=== PATIENT | female | born 1990 | race Caucasian/White ===

== ENCOUNTER 2018-04-08 04:52 | Inpatient (IN) | payer BC, OTHER, SELFPAY ==
[2018-04-08] VITALS (21 sets, daily range): BP systolic 102–136; BP diastolic 45–88; PULSE 72–110; RESP 15–20; TEMP 36–37.1; O2SAT 97–100; BMI 32.4
[2018-04-08] MEDS: Lactated Ringers 1,000 ML 999 ML IV (05:39)
[2018-04-08 06:23] LABS: Hematocrit 36.5 % (37-47); Mean Corp Hgb Conc 32.9 g/gl (32-36); Mean Corpuscular Hgb 28.4 pg (27.0-32.0); Mean Corpuscular Volume 86.5 fL (81-99); Mean Platelet Vol. 10.6 fl (6.2-12.0); Platelet Count 234 K/mm3 (150-450); RBC Distribution Width CV 14.1 % (11.6-14.6); RBC Distribution Width SD 43.7 fl (35.1-43.9); Red Blood Count 4.22 M/mm3 (4.2-5.4); White Blood Count 11.6 K/mm3 (4.4-11.0)
[2018-04-08 06:25] LABS: Scan Indicated on CBC? Y/N NO
[2018-04-08] MEDS: Lactated Ringers 1,000 ML 150 ML IV (06:39)
[2018-04-08] MEDS: Sodium Citrate/Citric Acid 30 ML UDC PO (07:01)
[2018-04-08] MEDS: Oxytocin 30 units/NS 500 ml 30 UNITS/500 ML IV.SOLN 167 UNITS IV (07:50)
--- NOTE | 2018-04-08 08:26 | OP.PCM_ITS ---
Delivery Classification: Scheduled Final GAIL: 04/15/18 Final GAIL Source: US <20 weeks Gestational age: 39 Weeks and 0 Days Indications for : Repeat Elective Description of Procedure: The patient was taken to the operating room. She was prepped and draped in the dorsal supine position with a leftward tilt. A Pfannenstiel skin incision was made approximately 2 cm above the symphysis pubis and carried through to underlying layer fascia with the scalpel. The fascia was incised incised in the midline and extended laterally with the Foy scissors. The fascia was dissected off the rectus muscles with blunt and sharp dissection. The rectus muscles were in the midline and the peritoneum was entered bluntly. The peritoneal incision was stretched and the bladder blade was placed. The uterine incision was made in a low transverse fashion with the scalpel and extended superiorly and inferiorly with blunt dissection. The amniotic membranes were ruptured bluntly and clear amniotic fluid returned. The ' s head was brought to the incision in the flexed position and delivered without difficulty. The remainder of the infant was delivered with gentle traction and fundal pressure in the standard fashion. The mouth and nares were bulb suctioned. The cord was clamped and cut as the was stimulated. Cord clamping was delayed. The infant was handed off to the waiting nursing staff. The placenta was delivered with fundal massage and gentle traction in the standard fashion. The uterus was exteriorized and cleared of all clots and debris. The cervix was dilated with a ring forcep. The uterine incision was closed with #1 Vicryl in a running locked fashion. [id number] was needed near the left apex of the incision to obtain hemostasis. The uterus was placed back into the peritoneal cavity and hemostasis was assured. The rectus muscles were examined and any bleeding was Bovie cauterized. The parietal peritoneum and rectus muscles were closed en bloc with a #1 Vicryl suture. The rectus fascia was examined and the bleeding was Bovie cauterized and the rectus fascia was closed with 1 Vicryl suture in a running standard fashion. The subcutaneous tissue was examining and any bleeding was Bovie cauterized. The skin was closed in a subcuticular fashion. Performed the entire procedure with assistance. All sponge, lap, and needle counts were correct. The patient was taken to her room for recovery in a stable condition. Amniotic Membrane Rupture Type: Artificial Amniotic Fluid Description: Clear Placenta Disposition: [facility] Specimen(s) sent to pathology: none Drain: Mukherjee to straight drain Fluids Replaced: LR and pitocin Cord Entanglement: None Cord Vessel Description: 3 Vessels Esitmated Blood Loss (ml): 900cc Gender: Female Delayed cord clamping: Yes Pre-op Antibiotic Given: Ancef 2 grams IV x1 Complications: None - Admit VTE Documentation VTE Present on Admission: No VTE Mechan Device Prophylaxis: SCD's VTE Pharm Prophylaxis ordered?: No
--- NOTE | 2018-04-08 10:53 | NURSING ---
Bedside shift report given to Porsche Celis RN. She will assume care of patient at this time.
[2018-04-08] MEDS: Ketorolac 30 MG/ML Syringe IV ×2 (14:21→20:36)
[2018-04-08] MEDS: Lactated Ringers 1,000 ML 100 ML IV (15:09)
[2018-04-08] MEDS: 0.9% Saline Lock 10 ML Syringe IV (20:36)
[2018-04-08] MEDS: Senna/Docusate Sodium 1 Tablet PO (22:20)
[2018-04-09 00:20] VITALS: BP 127/59; PULSE 96; RESP 18; TEMP 36.7; O2SAT 100
[2018-04-09 03:28] VITALS: PULSE 108; RESP 18; O2SAT 98
[2018-04-09] MEDS: Ketorolac 30 MG/ML Syringe IV ×4 (03:34→20:00)
[2018-04-09 06:08] VITALS: BP 116/56; PULSE 96; RESP 18; TEMP 35.7; O2SAT 99
[2018-04-09 06:10] LABS: Hemoglobin 10.1 g/dl (12.0-15.0); Mean Corp Hgb Conc 32.6 g/gl (32-36); Mean Corpuscular Hgb 28.5 pg (27.0-32.0); Mean Corpuscular Volume 87.6 fL (81-99); Mean Platelet Vol. 9.8 fl (6.2-12.0); Platelet Count 219 K/mm3 (150-450); RBC Distribution Width SD 42.9 fl (35.1-43.9); Red Blood Count 3.54 M/mm3 (4.2-5.4); White Blood Count 13.9 K/mm3 (4.4-11.0)
[2018-04-09 06:17] LABS: Scan Indicated on CBC? Y/N NO
[2018-04-09 08:00] VITALS: BP 116/68; PULSE 94; RESP 18; TEMP 36.3
[2018-04-09] MEDS: Senna/Docusate Sodium 1 Tablet PO ×2 (08:57→22:01)
[2018-04-09] MEDS: 0.9% Saline Lock 10 ML Syringe IV ×2 (08:57→14:38)
--- NOTE | 2018-04-09 10:54 | PCM.PN.OB ---
Subjective: pain well controlled, average lochia, ambulating, heath. regular diet - Physical Exam General: Alert, Cooperative, No apparent distress Abdomen: Soft, Non Tender, Non-Distended Extremities: No edema Skin: Incision - bandage clean, dry adn intact Vital Signs Temp Pulse Resp BP Pulse Ox 96.3 F L 96 18 116/56 L 99 04/09/18 06:08 04/09/18 06:08 04/09/18 06:08 04/09/18 06:08 04/09/18 06:08 Oxygen Delivery Method Room Air Weight: 85.729 kg Body Mass Index (BMI) 32.4 Intake and Output for Last 24 Hours 04/07/18 04/08/18 04/09/18 23:59 23:59 23:59 Intake Total 3089 / 3089 Output Total 2900 / 2900 1150 / 1150 Balance 189 / 189 -1150 / -1150 Laboratory Tests Past 24 Hrs 04/09/18 05:50 WBC 13.9 H RBC 3.54 L Hgb 10.1 L Hct 31.0 L MCV 87.6 MCH 28.5 MCHC 32.6 RDW 14.0 RDW Differential 42.9 Plt Count 219 MPV 9.8 Medical Necessity - Tobacco Use Smoking Status: Never smoker
--- NOTE | 2018-04-09 11:08 | DCINST_ITS ---
Discharge Diet: No Restrictions Discharge Activity: Return to Normal Activity, May Not Drive - for 2 weeks, May not drive while taking narcotic pain medications., May Shower, May Take a Tub Bath - in 7 days. May resume sexual activity in: 4-6 weeks Lifting Restrictions: 20 pounds Additional Activity Instructions:: Nothing in the vagina for 4-6 weeks. You may return to work/school in 6 weeks. Call your doctor if your incision/area has: Continuous Slow Oozing, Sudden Increased Bleeding, Increased Pain/ Swelling, Increased Redness, Foul Smelling Discharge Call your doctor if you observe: Fever of 101 or Higher, Using more than one pad per hour - for 2 hours Suture Line Care: Avoid Pulling/Pushing, Avoid Pinching/Bending Cleanse incision/area with: Keep Dressing Clean & Dry Additional Instructions: If you experience any of the following, contact your healthcare provider. * Bleeding that soaks a pad every hour for 2 hours * Fever 100.4 or higher * Unrelieved incision or abdominal pain * Swelling, redness, discharge or bleeding from your incision or episiotomy site * Your incision begins to separate * Problems urinating (including inability to urinate or burning while urinating) . * Visual changes * Severe headache * Flu-like symptoms * Pain or redness in one of both of your breasts * Pain, warmth, tenderness or swelling in your legs, especially the calf area * Frequent nausea and vomiting * Symptoms of depression or anxiety If you experience any of the following, call 911 or go to the nearest Emergency Room. * Chest pain * Problems breathing * Seizure activity * Partial or complete paralysis of a body part, slurred speech, weakness or drooping of the face, or a sudden inability to walk or hold your balance Allergies/Adverse Reactions: Allergies No Known Allergies Allergy (Verified 06/04/16 19:25) Medications to take at Discharge Vits [Prenatabs FA ] 1 tab PO DAILY 06/04/16 Ibuprofen [Motrin] 800 mg PO TID PRN PRN #60 tab 04/09/18 Oxycodone HCl/Acetaminophen [Percocet 5/325] 1 - 2 tablet PO Q8 PRN 7 Days #28 tablet 04/09/18 The following prescriptions were given: Ibuprofen [Motrin] 800 mg PO TID PRN PRN #60 tab PRN Reason: Pain Oxycodone HCl/Acetaminophen [Percocet 5/325] 1 - 2 tablet PO Q8 PRN 7 Days #28 tablet PRN Reason: Pain Follow-Up: Call to make an appointment with your doctor for an incision check in 1-2 weeks. You will also need a 6 week post- follow up appointment. Please Follow Up With: Yuliana Solomon MD - Call to make an appointment for an incision check in 1-2 [phone] When: You will need a post check in 6 weeks.
[2018-04-09 13:52] VITALS: BP 120/67; PULSE 91; RESP 16; TEMP 36.7
[2018-04-09 20:00] VITALS: BP 139/82; PULSE 98; RESP 16; TEMP 36.7
[2018-04-10 02:05] VITALS: BP 133/76; PULSE 96; RESP 16; TEMP 36.6
[2018-04-10] MEDS: Ketorolac 30 MG/ML Syringe IV ×2 (02:05→08:21)
[2018-04-10] MEDS: 0.9% Saline Lock 10 ML Syringe IV ×2 (02:06→08:21)
[2018-04-10 03:47] LABS: Rapid Plasmin Reagin (RPR) NONREACTIVE (NONREACTIVE)
--- NOTE | 2018-04-10 07:42 | PCM.PN.OB ---
Subjective: pain well controlled, average lochia, +BM. is going well - Physical Exam General: Alert, Cooperative, No apparent distress Abdomen: Soft, Distended - mildly, softly, Tender - appropriately Extremities: Edema - trace Skin: Incision - bandage clean, dry and intact Vital Signs Temp Pulse Resp BP Pulse Ox 97.9 F 96 16 133/76 H 99 04/10/18 02:05 04/10/18 02:05 04/10/18 02:05 04/10/18 02:05 04/09/18 06:08 Oxygen Delivery Method Room Air Weight: 85.729 kg Body Mass Index (BMI) 32.4 Intake and Output for Last 24 Hours 04/08/18 04/09/18 04/10/18 23:59 23:59 23:59 Intake Total 3089 / 3089 Output Total 2900 / 2900 1550 / 1550 Balance 189 / 189 -1550 / -1550 Laboratory Tests Past 24 Hrs 04/08/18 05:28 RPR NONREACTIVE Medical Necessity - Tobacco Use Smoking Status: Never smoker Assessment/Plan POD#2 doing well ready for d/c and doing well
--- NOTE | 2018-04-10 07:44 | PCM.DC.SUM ---
Discharge Date and Diagnosis Date of Admission: 04/08/18 Date of Discharge: 04/10/18 Hospital Course and Treatment Operations: - - repeat LTCS Procedures: None Summary of Care Provided: The patient is a 27-year-old 2 para 1 female admitted on 04/08/2018 for repeat section. This was performed without difficulty. She had mild acute blood loss anemia appropriate for blood loss during the surgery. Her postoperative course was unremarkable. By postoperative day #2 she was ambulating, urinating, tolerating regular diet and oral pain medications. She was discharged home with routine instructions and prescriptions and she is to follow-up in our office in 1-2 or 6 weeks. IThe breast-feeding and doing well. [] Discharge Diet: No Restrictions Discharge Activity: Return to Normal Activity, May Not Drive - for 2 weeks, May not drive while taking narcotic pain medications., May Shower, May Take a Tub Bath - in 7 days. May resume sexual activity in: 4-6 weeks Additional Activity Instructions:: Nothing in the vagina for 4-6 weeks. You may return to work/school in 6 weeks. Call your doctor if your incision/area has: Continuous Slow Oozing, Sudden Increased Bleeding, Increased Pain/ Swelling, Increased Redness, Foul Smelling Discharge Call your doctor if you observe: Fever of 101 or Higher, Using more than one pad per hour - for 2 hours Suture Line Care: Avoid Pulling/Pushing, Avoid Pinching/Bending Cleanse incision/area with: Keep Dressing Clean & Dry Home Medications: Medications to take at Discharge Vits [Prenatabs FA ] 1 tab PO DAILY 06/04/16 Ibuprofen [Motrin] 800 mg PO TID PRN PRN #60 tab 04/09/18 Oxycodone HCl/Acetaminophen [Percocet 5/325] 1 - 2 tablet PO Q8 PRN 7 Days #28 tablet 04/09/18 Following Prescrptions Were Given to Patient: Ibuprofen [Motrin] 800 mg PO TID PRN PRN #60 tab PRN Reason: Pain Oxycodone HCl/Acetaminophen [Percocet 5/325] 1 - 2 tablet PO Q8 PRN 7 Days #28 tablet PRN Reason: Pain Please Follow Up With: Yuliana Solomon MD - Call to make an appointment for an incision check in 1-2 [phone] When: You will need a post check in 6 weeks. Medical Necessity - Tobacco Use Smoking Status: Never smoker Meaningful Use Info Meaningful Use Diagnoses (Choose all that apply): None applicable
[2018-04-10 09:56] VITALS: BP 133/70; PULSE 92; RESP 16; TEMP 37; O2SAT 99
[2018-04-10] MEDS: Senna/Docusate Sodium 1 Tablet PO (11:24)
[2018-04-10 11:58] VITALS: BP 128/77; PULSE 90; RESP 16; TEMP 36.9
== END 2018-04-10 14:00 | disposition home or self-care (01) | DRG 765 ==
PROVIDERS: Admitting Provider Obstetrics & Gynecology; Visit Provider Obstetrics & Gynecology
PROC: 10D00Z1 Extraction of Products of Conception, Low, Open Approach (ICD-10-PCS; CPT 59514; principal; 2018-04-08 07:15)
DX: O34.219 Maternal care for unspecified type scar from previous cesarean delivery (principal); D62 Acute posthemorrhagic anemia; Z3A.39 39 weeks gestation of pregnancy; Z37.0 Single live birth
CPT/HCPCS: 85027; 86592; 86850; 86900; 99218; J7120; A4216; G0378; J2405

== ENCOUNTER 2020-01-03 09:27 | Inpatient (IN) | payer BC, SELFPAY ==
--- NOTE | 2019-12-30 11:55 | HP.PCM_ITS ---
History and Physical Date of Admission: 01/03/20 HPI: The patient is a 29 year old female presenting for pre-operative visit. She is scheduled for? and?tubal sterilization (plan bilateral salpingectomy), for?previous c/s on?01/03/20. ??Procedure discussed along with risks, benefits and complications. ?Other alternatives discussed for management. Consent form signed??Yes.? PAST MEDICAL HISTORY PAST MEDICAL HISTORY Diagnosis Date ? Acne ? ? Anxiety ? ? Depression ? ? Environmental allergies ? ? ? PAST SURGICAL HISTORY PAST SURGICAL HISTORY Procedure Laterality Date ? ANESTH, SECTION ? ? ? DELIVERY ONLY ? 06/05/16 ? , low transverse ? DELIVERY ONLY ? 04/08/2018 ? UNSPECIFIED ORAL SURGERY PROCEDURE, BY REPORT ? ? ? [place] Teeth ? ? CURRENT MEDICATIONS Current Outpatient Medications Medication Sig Dispense Refill ? VIT/IRON FUMARATE/FA ( ORAL) Take ?by mouth. ? ? ? No current facility-administered medications for this visit.? ? ALLERGIES:?Environmental [Other] ? PERSONAL HISTORY:? SOCIAL HISTORY Social History ? Tobacco Use ? Smoking status: Never Smoker ? Smokeless tobacco: Never Used Substance Use Topics ? Alcohol use: No ? Drug use: No ? FAMILY HISTORY:? FAMILY HISTORY FAMILY HISTORY Problem Relation Age of Onset ? other (HEADAHCES) Mother ? ? other (BORDERLINE HYPERTENSION) Mother ? ? Hypertension Maternal Grandmother ? ? Heart Maternal Grandfather ?38 YEARS ? Hypertension Maternal Grandfather ? ? Hypertension Paternal Grandfather ? ? Thyroid Paternal Grandfather ? ? REVIEW OF SYMPTOMS: GENERAL: denies fevers or chills ENDOCRINOLOGY: has not been on steroids Cardiology : denies palpitations or chest pain Respiratory: denies SOB or cough Hematology: denies history of prolonged bleeding or easy bruising or VTE Allergy: Denies history of personal or family history of allergy to anesthesia ? ? PHYSICAL EXAMINATION: ? VITALS:?Blood pressure 124/84, weight 180 lb (81.6 kg), last menstrual period 04/03/2019, currently . ? GENERAL:??The patient is well nourished, well hydrated in no acute distress. ?, The patient is oriented to time, place, and person. NECK:?Supple. No lynphadenopathy, normal thyroid, no thyromegaly. LUNGS:?Clear to auscultation bilaterally. no wheezes, rhonchi or rales HEART:?Regular rate and rhythm, Normal heart sounds and No murmurs or gallops abd- soft, nontender, gravid ? IMPRESSION:?39w2d IUP on 01/02, previous c/s, desires sterilization ? PLAN:???The risks/benefits/alternatives and personal involved for the planned?c- section and tubal sterilization?were reviewed with the patient. Her questions were answered to her satisfaction and she desires to proceed. ?Consent was signed. ?I reviewed with her postop instructions and expectations. ? ? I have reviewed and updated past medical and surgical history, medications and allergies?
[2020-01-03] VITALS (17 sets, daily range): BP systolic 106–130; BP diastolic 56–72; PULSE 74–100; RESP 12–18; TEMP 36.5–37; O2SAT 97–100; BMI 30.6
[2020-01-03] MEDS: Lactated Ringers 1,000 ML 999 ML IV (10:05)
[2020-01-03 10:28] LABS: Absolute Lymphocyte Count 1.73 X10^3/uL (0.83-4.51); Absolute Neutrophil Count 6.8 X10^3/uL (2.0-7.7); Basophil# 0.03 X10^3/uL; Basophil% 0.3 % (0-1); Eosinophil# 0.01 X10^3/uL; Eosinophils% 0.1 % (0-5); Hematocrit 37.4 % (37-47); Hemoglobin 11.9 g/dL (12.0-15.0); Lymphocyte # 1.73 X10^3/ul (4.0); Lymphocyte % 18.9 % (19-41); Mean Corp Hgb Conc 31.8 g/dL (32-36); Mean Corpuscular Volume 84.8 fL (81-99); Mean Platelet Vol. 10.8 fl (6.2-12.0); Monocyte# 0.57 X10^3/uL; Monocyte% 6.2 % (0-10); NRBC Flagged by Analyzer 0 % (0-5); Neutrophil # 6.77 X10^3/uL (2.7-7.7); Neutrophil % 74.2 % (47-70); Platelet Count 265 K/mm3 (150-450); RBC Distribution Width CV 14.8 % (11.6-14.6); RBC Distribution Width SD 45.6 fl (35.1-43.9); Red Blood Count 4.41 M/mm3 (4.2-5.4); White Blood Count 9.1 K/mm3 (4.4-11.0)
[2020-01-03] MEDS: Lactated Ringers 1,000 ML 150 ML IV (11:08)
[2020-01-03] MEDS: Sodium Citrate/Citric Acid 30 ML UDC PO (11:44)
[2020-01-03] MEDS: Cefazolin 2 GM in 0.9% Normal Saline 100 ML IV (11:44)
--- NOTE | 2020-01-03 12:20 | FALS_PTH ---
PATIENT: ANITA ARVIZU LOC: [facility] U#:[id number] AGE/SX: 29/F ROOM: WP004 RE01/03/[address]: Dr. Yuliana Solomon MD : [id number] BED: 1 DIS: 01/04/2020 SPEC #: [id number] RECD: 01/03/20 14:51 STATUS: MIELDA REAlma #: [id number] MELINDA: 01/03/20 12:[address]: Yuliana Solomon DEPT: SURGICAL PATHOLOGY RECD BY: Kodak Stiles ENTERED: 01/04/20 07:58 SP TYPE: FALL TUBES OTHR DR: Timi Vargas Tissues: Fallopian tube Procedures: Surgery Specimen Level II HEADER OPERATION: Tubal ligation PRE-OP DIAGNOSIS: Sterilization TISSUE SUBMITTED: A - Right fallopian tube, B - Left fallopian tube MICROSCOPIC DIAGNOSIS A. Right fallopian tube, salpingectomy: Fallopian tube including fimbrial end, no pathologic diagnosis. B. Left fallopian tube, salpingectomy: Fallopian tube including fimbrial end, no pathologic diagnosis. Paratubal cyst. ALOK:jocelyn 01/05/20 MICROSCOPIC DESCRIPTION Slides are reviewed. GROSS DESCRIPTION A - Received is one container labeled with the patient's name and designated right fallopian tube. The specimen consists of a fallopian tube including fimbrial end measuring 7 cm in length and up to 1 cm in diameter. Sections reveal unremarkable cut surfaces. Prize Coordinator sections are submitted in one cassette. B - Received is one container labeled with the patient's name and designated left fallopian tube. The specimen consists of a fallopian tube including fimbrial end measuring 7 cm in length and up to 0.6 cm in diameter. Sections reveal unremarkable cut surfaces. A paratubal cyst is noted measuring 0.7 cm in greatest dimension. Prize Coordinator sections including paratubal cyst are submitted in one cassette. / ALOK:jocelyn 01/04/20 TC:5 CPT: 14524 x2
[2020-01-03 12:27] LABS: Amphetamine Urine VISTA NEGATIVE (<1000 ng/mL); Barbiturate Urine VISTA NEGATIVE (< 200 ng/mL); Benzodiazepine Urine VISTA NEGATIVE (< 200 ng/mL); Cocaine Urine VISTA NEGATIVE (< 300 ng/mL); Ecstacy Urine VISTA NEGATIVE (< 500 ng/mL); Methadone Urine VISTA NEGATIVE (< 300 ng/mL); PCP Urine VISTA NEGATIVE (< 25 ng/mL); THC Urine VISTA NEGATIVE (< 50 ng/mL); Vista UDS pH Range 6
--- NOTE | 2020-01-03 12:57 | PCM.OPRPT ---
Delivery Classification: Scheduled Final GAIL: 01/08/20 Final GAIL Source: US <20 weeks Gestational age: 39 Weeks and 2 Days pension agent: Maya Reyes Type of Anesthesia:: Spinal Date of Procedure: 01/03/20 Pre-Operative Diagnosis: 39 weeks, previous c/s, desires sterilization Post-Operative Diagnosis: same Indications for : Repeat Elective Description of Procedure: Repeat low transverse section with bilateral salpingectomy The patient was taken to the operating room. She was prepped and draped in the dorsal supine position with a leftward tilt. A Pfannenstiel skin incision was made approximately 2 cm above the symphysis pubis and carried through to underlying layer fascia with the scalpel. The fascia was incised incised in the midline and extended laterally with the Foy scissors. The fascia was dissected off the rectus muscles with blunt and sharp dissection. The rectus muscles were in the midline and the peritoneum was entered [bluntly]. The peritoneal incision was stretched and the bladder blade was placed. The uterine incision was made in a low transverse fashion with the scalpel and extended superiorly and inferiorly with blunt dissection. [The amniotic membranes were ruptured bluntly and clear amniotic fluid returned]. The infant's head was brought to the incision in the flexed position and delivered without difficulty. The remainder of the was delivered with gentle traction and fundal pressure in the standard fashion. The mouth and nares were bulb suctioned. The cord was clamped and cut as the was stimulated. [Cord clamping was delayed]. The was handed off to the waiting nursing staff. The placenta was delivered with fundal massage and gentle traction in the standard fashion. The uterus was exteriorized and cleared of all clots and debris. The cervix was dilated with a ring forcep. The uterine incision was closed with #1 Vicryl in a running locked fashion. The incision was examined and was found to be hemostatic. The right tube was identified and followed out to the fimbriated end. The insertion near the cornual edge of the uterus was clamped across with a Mari clamp. The antimesenteric portions of the tube were clamped, sealed and transected with LigaSure device. It was then amputated from the cornual edge of the uterus with the same device. The same procedure was performed on the contralateral side.. The pedicles were hemostatic and the same procedure was performed on the contralateral side. Both sides were confirmed to be hemostatic. The uterus was placed back into the peritoneal cavity and hemostasis was again confirmed. The rectus muscles were examined and any bleeding was Bovie cauterized. The parietal peritoneum and rectus muscles were closed en bloc with an 0 Vicryl running suture. The surgical teams outer gloves were then changed. The rectus fascia was examined and any bleeding was Bovie cauterized and the rectus fascia was closed with 1 Vicryl suture in a running standard fashion. The subcutaneous tissue was examining and any bleeding was Bovie cauterized. The subcutaneous tissue was reapproximated with 3-0 Vicryl suture. The skin was closed in a subcuticular fashion by the [employer] with me present in the labor and delivery suite. I performed the remainder of the procedure with assistance. All sponge, lap, and needle counts were correct. The patient was taken to her room for recovery in a stable condition. Amniotic Membrane Rupture Type: Artificial Amniotic Fluid Description: Clear Placenta Disposition: [facility] Specimen(s) sent to pathology: bilateral fallopian tubes Drain: Mukherjee to straight drain Fluids Replaced: 1000cc Cord Entanglement: None Cord Vessel Description: 3 Vessels Esitmated Blood Loss (ml): 600 Gender: Female (1 minute): 9 (5 minute): 9 Delayed cord clamping: Yes Antibiotic Given: Ancef 2 grams IV x1 Complications: None
[2020-01-03] MEDS: Oxytocin 30 units/NS 500 ml 30 UNITS/500 ML IV.SOLN 167 UNITS IV (13:00)
[2020-01-03] MEDS: Lactated Ringers 1,000 ML 100 ML IV ×2 (15:38→20:56)
[2020-01-03] MEDS: Ketorolac 30 MG/ML Syringe IV ×2 (18:33→23:55)
[2020-01-03] MEDS: 0.9% Saline Lock 10 ML Syringe IV (23:55)
[2020-01-04 00:09] VITALS: BP 113/64; PULSE 93; RESP 16; TEMP 36.7; O2SAT 99
[2020-01-04 04:30] VITALS: BP 125/72; PULSE 98; RESP 18; TEMP 36.8
[2020-01-04 04:53] LABS: Hematocrit 31.8 % (37-47); Hemoglobin 10.2 g/dL (12.0-15.0); Mean Corp Hgb Conc 32.1 g/dL (32-36); Mean Corpuscular Hgb 27.9 pg (27.0-32.0); Mean Corpuscular Volume 86.9 fL (81-99); Mean Platelet Vol. 10.9 fl (6.2-12.0); Platelet Count 202 K/mm3 (150-450); RBC Distribution Width CV 14.7 % (11.6-14.6); RBC Distribution Width SD 46.8 fl (35.1-43.9); Red Blood Count 3.66 M/mm3 (4.2-5.4); White Blood Count 11.2 K/mm3 (4.4-11.0)
[2020-01-04] MEDS: Naproxen 250 MG Tablet PO (05:54)
--- NOTE | 2020-01-04 06:43 | NURSING ---
This RN removed IV, due to voiding adequately. However, Pt had Toradol doses yet to complete. Offered re-insertion of IV to finish IV Toradol doses; However, Pt declined and wants to take PO Naprosyn as she would like to be discharged home today.
--- NOTE | 2020-01-04 08:01 | PN.OBGYN_ITS ---
Subjective: pain well controlled, average lochia. Tolerating regular diet. Desires d/c home. and doing well - Physical Exam Vitals/I&O's: Vital Signs Temp Pulse Resp BP Pulse Ox 98.3 F 98 18 125/72 H 99 01/04/20 04:30 01/04/20 04:30 01/04/20 04:30 01/04/20 04:30 01/04/20 00:09 Oxygen Delivery Method Room Air Weight: 81 kg Body Mass Index (BMI) 30.6 Intake and Output for Last 24 Hours 01/02/20 01/03/20 01/04/20 23:59 23:59 23:59 Intake Total 2315.83 / 2315.83 331.67 / 331.67 Output Total 350 / 350 3550 / 3550 Balance 1965.83 / 1965.83 -3218.33 / -3218.33 General: Alert, Cooperative, No apparent distress Abdomen: Soft, Distended - mildly, softly, Tender - appropriately Extremities: Edema - trace Skin: Incision - bandage w/ small 2 cm area of blood tinged discharge at lower edge. Laboratory Results 01/03/20 10:05: WBC 9.1, RBC 4.41, Hgb 11.9 L, Hct 37.4, MCV 84.8, MCH 27.0, MCHC 31.8 L, RDW Std Deviation 45.6 H, RDW Coeff of Livan 14.8 H, Plt Count 265, MPV 10.8, Immature Gran % (Auto) 0.300, Neut % (Auto) 74.2 H, Lymph % (Auto) 18.9 L, [place] % (Auto) 6.2, Eos % (Auto) 0.1, Baso % (Auto) 0.3, Absolute Neuts (auto) 6.8, Absolute Lymphs (auto) 1.73, Nucleated RBC % 0 01/03/20 10:05: Blood Type A POSITIVE, Antibody Screen NEGATIVE 01/03/20 11:35: Urine Opiates Screen NEGATIVE, Urine Methadone Screen NEGATIVE, Ur Barbiturates Screen NEGATIVE, Ur Phencyclidine Scrn NEGATIVE, Ur Amphetamines Screen NEGATIVE, U Methamphetamin-MDMA NEGATIVE, U Benzodiazepines Scrn NEGATIVE, Urine Cocaine Screen NEGATIVE, U Cannabinoids Screen NEGATIVE, Ur Drug Screen Comment 01/04/20 04:20: WBC 11.2 H, RBC 3.66 L, Hgb 10.2 L, Hct 31.8 L, MCV 86.9, MCH 27.9, MCHC 32.1, RDW Std Deviation 46.8 H, RDW Coeff of Livan 14.7 H, Plt Count 202, MPV 10.9 Current Medications Acetaminophen (Tylenol) 1,000 mg PO Q8H PRN PRN Reason: Pain Score 1-3/10 Bisacodyl (Dulcolax) 10 mg RECTAL UD PRN PRN Reason: If no BM Hydrocortisone (Hytone) 1 applic TOPICAL TID PRN PRN; Protocol PRN Reason: Discomfort Naloxone HCl 4 mg/ Dextrose 504 mls @ 0 mls/hr IV .Q0M PRN; Protocol PRN Reason: Respiratory depression Methylergonovine Maleate (Methergine) 0.2 mg IM X1 PRN PRN Reason: Uterine Atony Naloxone HCl (Narcan) 0.02 mg IV Q1M PRN PRN Reason: RR <10 and pt unresponsive Naproxen (Naprosyn) 250 - 500 mg PO Q8H PRN PRN PRN Reason: Pain Score 1-3/10 Last Admin: 01/04/20 05:54 Dose: 500 mg Documented by: Ondansetron HCl (Zofran) 4 mg IV Q4H PRN PRN PRN Reason: Nausea Oxycodone HCl (Oxyir) 5 - 10 mg PO Q4H PRN PRN PRN Reason: Pain Score 4-10/10 Prochlorperazine Edisylate (Compazine Iv) 10 mg IV Q6H PRN PRN PRN Reason: NAUSEA Senna/Docusate Sodium (Senokot-S, Stacie-Colace) 0 tablet PO DAILY PRN PRN Reason: Constipation Simethicone (Mylicon) 80 mg PO PCHS PRN PRN Reason: Indigestion/stomach pain Sodium Chloride () 5 - 15 ml IV UD PRN PRN Reason: SALINE FLUSH Last Admin: 01/03/20 23:55 Dose: 10 ml Documented by: Medical Necessity - Tobacco Use Smoking Status: Never smoker Assessment/Plan Postoperative day #1 status post repeat section with bilateral salpingectomy. Patient is doing well. is breast-feeding and doing well. Patient desires discharge home today with routine instructions and prescriptions.
--- NOTE | 2020-01-04 08:08 | PCM.DCCSEC ---
Discharge Diet: No Restrictions Discharge Activity: Return to Normal Activity, May Not Drive - for 2 weeks, May not drive while taking narcotic pain medications., May Shower, May Take a Tub Bath - in 7 days. May resume sexual activity in: 4-6 weeks Lifting Restrictions: 20 pounds Additional Activity Instructions:: Nothing in the vagina for 4-6 weeks. You may return to work/school in 6 weeks. Call your doctor if your incision/area has: Continuous Slow Oozing, Sudden Increased Bleeding, Increased Pain/ Swelling, Increased Redness, Foul Smelling Discharge Call your doctor if you observe: Fever of 101 or Higher, Using more than one pad per hour - for 2 hours Suture Line Care: Avoid Pulling/Pushing, Avoid Pinching/Bending Cleanse incision/area with: Keep Dressing Clean & Dry Additional Instructions: If you experience any of the following, contact your healthcare provider. Bleeding that soaks a pad every hour for 2 hours Fever 100.4 or higher Unrelieved incision or abdominal pain Swelling, redness, discharge or bleeding from your incision or episiotomy site Your incision begins to separate Problems urinating (including inability to urinate or burning while urinating). Visual changes Severe headache Flu-like symptoms Pain or redness in one of both of your breasts Pain, warmth, tenderness or swelling in your legs, especially the calf area Frequent nausea and vomiting Symptoms of depression or anxiety If you experience any of the following, call 911 or go to the nearest Emergency Room. Chest pain Problems breathing Seizure activity Partial or complete paralysis of a body part, slurred speech, weakness or drooping of the face, or a sudden inability to walk or hold your balance Allergies/Adverse Reactions: Allergies No Known Allergies Allergy (Verified 06/04/16 19:25) Medications to take at Discharge Vits [Prenatabs FA ] 1 tab PO DAILY 06/04/16 Naproxen [Naprosyn] 375 mg PO TID PRN #40 tab 01/04/20 Oxycodone [Oxyir] 5 mg PO Q6H PRN PRN 7 Days #20 tablet 01/04/20 The following prescriptions were given: Naproxen [Naprosyn] 375 mg PO TID PRN #40 tab PRN Reason: Pain Or Fever Transmission Status: Pending to [facility] Oxycodone [Oxyir] 5 mg PO Q6H PRN PRN 7 Days #20 tablet PRN Reason: severe pain Transmission Status: Sent to [facility] Follow-Up: Call to make an appointment with your doctor for an incision check in 1-2 weeks. You will also need a 6 week post- follow up appointment. Test results from this visit will be discussed in further detail at your follow-up appointment, if applicable. Please Follow Up With: Yuliana Solomon MD - Call to make an appointment for an incision check in 1-2 [phone] When: You will need a post check in 6 weeks. Primary Care Physician: Timi Vargas [Primary Care Provider] -
--- NOTE | 2020-01-04 08:09 | DS.PCM_ITS ---
Discharge Date and Diagnosis Date of Admission: 01/03/20 Date of Discharge: 01/04/20 Hospital Course and Treatment Operations: - - repeat LTCS with bilateral salpingectomy Summary of Care Provided: The patient is a 29 year old female who had a repeat section with bilateral salpingectomy on 01/03/2020 without complications. On postoperative day #1 she was doing well. She desires discharge home today. She was given routine instructions and prescriptions. [] - Physical Exam Vitals/I&O's: Vital Signs Temp Pulse Resp BP Pulse Ox 98.3 F 98 18 125/72 H 99 01/04/20 04:30 01/04/20 04:30 01/04/20 04:30 01/04/20 04:30 01/04/20 00:09 Oxygen Delivery Method Room Air Weight: 81 kg Body Mass Index (BMI) 30.6 Intake and Output for Last 24 Hours 01/02/20 01/03/20 01/04/20 23:59 23:59 23:59 Intake Total 2315.83 / 2315.83 331.67 / 331.67 Output Total 350 / 350 3550 / 3550 Balance 1965.83 / 1965.83 -3218.33 / -3218.33 Laboratory Results 01/03/20 10:05: WBC 9.1, RBC 4.41, Hgb 11.9 L, Hct 37.4, MCV 84.8, MCH 27.0, MCHC 31.8 L, RDW Std Deviation 45.6 H, RDW Coeff of Livan 14.8 H, Plt Count 265, MPV 10.8, Immature Gran % (Auto) 0.300, Neut % (Auto) 74.2 H, Lymph % (Auto) 18.9 L, [place] % (Auto) 6.2, Eos % (Auto) 0.1, Baso % (Auto) 0.3, Absolute Neuts (auto) 6.8, Absolute Lymphs (auto) 1.73, Nucleated RBC % 0 01/03/20 10:05: Blood Type A POSITIVE, Antibody Screen NEGATIVE 01/03/20 11:35: Urine Opiates Screen NEGATIVE, Urine Methadone Screen NEGATIVE, Ur Barbiturates Screen NEGATIVE, Ur Phencyclidine Scrn NEGATIVE, Ur Amphetamines Screen NEGATIVE, U Methamphetamin-MDMA NEGATIVE, U Benzodiazepines Scrn NEGATIVE, Urine Cocaine Screen NEGATIVE, U Cannabinoids Screen NEGATIVE, Ur Drug Screen Comment 01/04/20 04:20: WBC 11.2 H, RBC 3.66 L, Hgb 10.2 L, Hct 31.8 L, MCV 86.9, MCH 27.9, MCHC 32.1, RDW Std Deviation 46.8 H, RDW Coeff of Livan 14.7 H, Plt Count 202, MPV 10.9 Current Medications Acetaminophen (Tylenol) 1,000 mg PO Q8H PRN PRN Reason: Pain Score 1-3/10 Bisacodyl (Dulcolax) 10 mg RECTAL UD PRN PRN Reason: If no BM Hydrocortisone (Hytone) 1 applic TOPICAL TID PRN PRN; Protocol PRN Reason: Discomfort Naloxone HCl 4 mg/ Dextrose 504 mls @ 0 mls/hr IV .Q0M PRN; Protocol PRN Reason: Respiratory depression Methylergonovine Maleate (Methergine) 0.2 mg IM X1 PRN PRN Reason: Uterine Atony Naloxone HCl (Narcan) 0.02 mg IV Q1M PRN PRN Reason: RR <10 and pt unresponsive Naproxen (Naprosyn) 250 - 500 mg PO Q8H PRN PRN PRN Reason: Pain Score 1-3/10 Last Admin: 01/04/20 05:54 Dose: 500 mg Documented by: Ondansetron HCl (Zofran) 4 mg IV Q4H PRN PRN PRN Reason: Nausea Oxycodone HCl (Oxyir) 5 - 10 mg PO Q4H PRN PRN PRN Reason: Pain Score 4-10/10 Prochlorperazine Edisylate (Compazine Iv) 10 mg IV Q6H PRN PRN PRN Reason: NAUSEA Senna/Docusate Sodium (Senokot-S, Stacie-Colace) 0 tablet PO DAILY PRN PRN Reason: Constipation Simethicone (Mylicon) 80 mg PO PCHS PRN PRN Reason: Indigestion/stomach pain Sodium Chloride () 5 - 15 ml IV UD PRN PRN Reason: SALINE FLUSH Last Admin: 01/03/20 23:55 Dose: 10 ml Documented by: Discharge Diet: No Restrictions Discharge Activity: Return to Normal Activity, May Not Drive - for 2 weeks, May not drive while taking narcotic pain medications., May Shower, May Take a Tub Bath - in 7 days. May resume sexual activity in: 4-6 weeks Additional Activity Instructions:: Nothing in the vagina for 4-6 weeks. You may return to work/school in 6 weeks. Call your doctor if your incision/area has: Continuous Slow Oozing, Sudden Increased Bleeding, Increased Pain/ Swelling, Increased Redness, Foul Smelling Discharge Call your doctor if you observe: Fever of 101 or Higher, Using more than one pad per hour - for 2 hours Suture Line Care: Avoid Pulling/Pushing, Avoid Pinching/Bending Cleanse incision/area with: Keep Dressing Clean & Dry Home Medications: Medications to take at Discharge Vits [Prenatabs FA ] 1 tab PO DAILY 06/04/16 Naproxen [Naprosyn] 375 mg PO TID PRN #40 tab 01/04/20 Oxycodone [Oxyir] 5 mg PO Q6H PRN PRN 7 Days #20 tablet 01/04/20 Following Prescrptions Were Given to Patient: Naproxen [Naprosyn] 375 mg PO TID PRN #40 tab PRN Reason: Pain Or Fever Transmission Status: Pending to [facility] Oxycodone [Oxyir] 5 mg PO Q6H PRN PRN 7 Days #20 tablet PRN Reason: severe pain Transmission Status: Sent to [facility] Primary Care Physician: Timi Vargas [Primary Care Provider] - Please Follow Up With: Yuliana Solomon MD - Call to make an appointment for an incision check in 1-2 [phone] When: You will need a post check in 6 weeks. Medical Necessity - Tobacco Use Smoking Status: Never smoker Meaningful Use Info Meaningful Use Diagnoses (Choose all that apply): None applicable
[2020-01-04] MEDS: Senna/Docusate Sodium 1 Tablet PO (08:12)
[2020-01-04 08:23] VITALS: BP 135/69; PULSE 102; RESP 20; TEMP 36.7
[2020-01-06 14:56] LABS: Pathology Specimen OB SEE PATHOLOGY REPORT
== END 2020-01-04 14:30 | disposition home or self-care (01) | DRG 785 ==
PROVIDERS: Admitting Provider Obstetrics & Gynecology; Referring Provider Obstetrics & Gynecology; Visit Provider Obstetrics & Gynecology
PROC: 10D00Z1 Extraction of Products of Conception, Low, Open Approach (ICD-10-PCS; CPT 59514; principal; 2020-01-03 11:45)
DX: O34.211 Maternal care for low transverse scar from previous cesarean delivery (principal); N85.8 Other specified noninflammatory disorders of uterus; Z3A.39 39 weeks gestation of pregnancy; Z37.0 Single live birth; Z30.2 Encounter for sterilization
CPT/HCPCS: 80307; 85025; 85027; 86850; 86900; 86901; 88302; 99218; 99251; J7120; A4216; G0378; G0463; J2405

== ENCOUNTER → 2021-05-21 15:07 | Outpatient (CLI) | payer OTHER, SELFPAY ==
[2020-01-03 09:31] VITALS: BMI 30.6
[2021-05-21 17:08] LABS: Absolute Lymphocyte Count 2.01 X10^3/uL (0.83-4.51); Absolute Neutrophil Count 4.5 X10^3/uL (2.0-7.7); Basophil# 0.03 X10^3/uL; Basophil% 0.4 % (0-1); Eosinophil# 0.02 X10^3/uL; Eosinophils% 0.3 % (0-5); Hematocrit 41.4 % (37-47); Hemoglobin 13.2 g/dL (12.0-15.0); Lymphocyte # 2.01 X10^3/ul (0.83-4.51); Lymphocyte % 29.1 % (19-41); Mean Corp Hgb Conc 31.9 g/dL (32-36); Mean Corpuscular Hgb 27.5 pg (27.0-32.0); Mean Corpuscular Volume 86.3 fL (81-99); Mean Platelet Vol. 10.8 fl (6.2-12.0); Monocyte# 0.36 X10^3/uL; Monocyte% 5.2 % (0-10); NRBC Flagged by Analyzer 0 % (0-5); Neutrophil # 4.47 X10^3/uL (2.7-7.7); Neutrophil % 64.9 % (47-70); Platelet Count 321 K/mm3 (150-450); RBC Distribution Width CV 13.6 % (11.6-14.6); RBC Distribution Width SD 43.6 fl (35.1-43.9); White Blood Count 6.9 K/mm3 (4.4-11.0)
[2021-05-21 17:32] LABS: ALB/GLOB Ratio 1.4 RATIO (0.9-2.4); AST(SGOT) 13 U/L (15-37); Alanine Aminotransfer ALT/SGPT 18 U/L (13-56); Albumin, Serum 4.5 g/dL (3.2-5.0); Alkaline Phosphatase 70 U/L (45-117); Anion Gap 7 (5-15); BUN 11 mg/dL (7-18); BUN/Creat Ratio 17.2 RATIO (10-20); Calcium,Total 8.6 mg/dL (8.5-10.1); Chloride 105 mmol/L (98-107); Creatinine, Serum 0.64 mg/dL (0.55-1.02); EST Glomerular Filtration Rate 117 mL/min (>60); Est Glom Filt Rate - Afr Amer 141 mL/min (>60); Globulin 3.3 g/dL (2.2-4.2); Glucose 80 mg/dL (74-106); Potassium 3.5 mmol/L (3.5-5.1); Protein, Total 7.8 g/dL (6.4-8.2); Sodium Level 139 mmol/L (136-145); T4 Free Direct 1.03 ng/dL (0.76-1.46); Thyroid Stim Hormone (TSH) 3.58 uIU/mL (0.358-3.74)
[2021-05-24 06:08] LABS: Thyroid Stim Immunoglob <0.10 IU/L (0.00-0.55)
[2021-05-24 07:38] LABS: Anti-Thyroglobulin AB < 1.0 IU/mL (0.0-0.9); Thyroglobulin, Serum Qt. 9.9 ng/mL (1.5-38.5); Thyroid Peroxidase AB < 8 IU/mL (0-34)
== END ==
PROVIDERS: PCP Family Medicine; Referring Provider Family Medicine; Visit Provider Family Medicine
DX: E01.0 Iodine-deficiency related diffuse (endemic) goiter (principal)
CPT/HCPCS: 36415; 80053; 84432; 84439; 84443; 84445; 85025; 86376; 86800

== ENCOUNTER → 2021-05-21 16:39 | Outpatient (CLI) | payer OTHER, SELFPAY ==
[2020-01-03 09:31] VITALS: BMI 30.6
--- NOTE | 2021-05-21 16:40 | US_ITS ---
STUDY: THYROID ULTRASOUND REASON FOR EXAM: Female, 30 years old. L THYROID NODULE TECHNIQUE: Ultrasound evaluation of the thyroid was performed with real-time and static villa-scale imaging. COMPARISON: 06/05/2012 FINDINGS: RIGHT LOBE: The right lobe of the thyroid gland measures 5.1 x 1.7 x 1.2 cm. There is a homogeneous echotexture. There are no demonstrated solid, cystic or complex lesions. LEFT LOBE: The left lobe of the thyroid gland measures 5.0 x 1.5 x 1.1 cm. There is a homogeneous echotexture. Nodule 1:10 x 18 x 10 mm cystic anechoic wider than tall smoothly marginated nodule with no echogenic foci (TR 1) either within or adjacent to the inferior aspect of the left lobe of the thyroid gland consistent with a colloid cyst or other cystic mass such as cystic hygroma or branchial cleft cyst. ISTHMUS: The isthmus measures 3 mm thick. . The regional lymph nodes are normal. US/Thyroid IMPRESSION: 1.8 cm exophytic colloid cyst of the inferior left lobe or possibly another cystic mass such as cystic hygroma or brachial cleft cyst. Electronically Signed: Miki Bone MD at 11:02 EDT Tel , Service support ,
== END ==
PROVIDERS: PCP Family Medicine; Referring Provider Family Medicine; Visit Provider Family Medicine
DX: E04.1 Nontoxic single thyroid nodule (principal)
CPT/HCPCS: 76536

== ENCOUNTER → 2021-06-22 13:37 | Outpatient (CLI) | payer OTHER, SELFPAY | PROVIDERS: PCP Family Medicine; Referring Provider Family Medicine; Visit Provider Family Medicine | DX: E55.9 Vitamin D deficiency, unspecified (principal) | CPT/HCPCS: 36415; 82306 ==

== ENCOUNTER → 2021-07-13 13:03 | Outpatient (CLI) | payer OTHER, SELFPAY ==
--- NOTE | 2021-07-13 13:05 | US_ITS ---
STUDY: SUPERFICIAL ULTRASOUND - LEFT CERVICAL REGION. REASON FOR EXAM: Female, 31 years old. ENLARGED LYMPH NODES TECHNIQUE: A superficial ultrasound was performed with real-time and static villa-scale imaging. COMPARISON: None. FINDINGS: 2 lymph nodes are seen in the left submandibular area. The larger measures 3.6 cm by 2.3 cm x 0.8 cm. Lateral to the left lobe of the thyroid, 2 lymph nodes are seen. The larger measures 2.4 cm x 0.8 cm x 0.3 cm. US/Head/Neck Soft Tissue IMPRESSION: Lymph nodes are seen in the left submandibular region as well as lateral to the left lobe of the thyroid. Electronically Signed: Moisés Arreola MD at 15:36 EDT , Service support ,
== END ==
PROVIDERS: PCP Family Medicine; Referring Provider Surgery; Visit Provider Surgery
DX: R59.0 Localized enlarged lymph nodes (principal)
CPT/HCPCS: 76536

== ENCOUNTER → 2021-09-25 07:59 | Outpatient (CLI) | payer OTHER, SELFPAY ==
[2021-09-25 08:33] LABS: Hemoglobin 13.3 g/dL (12.0-15.0); Mean Corp Hgb Conc 33.3 g/dL (32-36); Mean Corpuscular Hgb 28.2 pg (27.0-32.0); Mean Corpuscular Volume 84.9 fL (81-99); Mean Platelet Vol. 10.1 fl (6.2-12.0); Platelet Count 313 K/mm3 (150-450); RBC Distribution Width SD 40.5 fl (35.1-43.9); Red Blood Count 4.71 M/mm3 (4.2-5.4); White Blood Count 5.3 K/mm3 (4.4-11.0)
[2021-09-25 09:07] LABS: Thyroid Stim Hormone (TSH) 2.71 uIU/mL (0.358-3.74)
[2021-09-28 09:09] LABS: Testosterone, Free 0.13 ng/dL (0.10-0.85); Testosterone, Total 11 ng/dL (13-71)
[2021-09-28 16:17] LABS: Testosterone, % Free 1.17 % (0.50-2.80)
== END ==
PROVIDERS: PCP Family Medicine; Referring Provider Obstetrics & Gynecology; Visit Provider Obstetrics & Gynecology
DX: L65.9 Nonscarring hair loss, unspecified (principal); R45.89 Other symptoms and signs involving emotional state
CPT/HCPCS: 36415; 84402; 84403; 84443; 85027

== ENCOUNTER → 2021-09-28 08:57 | Outpatient (CLI) | payer OTHER, SELFPAY ==
[2021-09-28 10:08] LABS: Vitamin B12 595 pg/mL (211-911); Vitamin D,25 Hydroxy 18.2 ng/mL
[2021-09-28 10:18] LABS: Ferritin 28 ng/mL (8-252); Iron 55 ug/dL (50-170); Iron Binding Capacity,Total 372 ug/dL (250-450); PERCENT IRON SATURATION 14.8 % (15.0-55.0); T4 Free Direct 1.04 ng/dL (0.76-1.46); Thyroid Stim Hormone (TSH) 2.82 uIU/mL (0.358-3.74)
[2021-09-28 13:14] LABS: T3 Uptake 34 % (30-39); T4 Total, Thyroxin 8.6 ug/dL (4.8-13.9); T7 / Free Thyroxin Index 2.9 (1.4-4.5)
[2021-09-30 12:07] LABS: Vitamin D 1,25-Dihydroxy 76.1 pg/mL (19.9-79.3)
[2021-09-30 14:56] LABS: ANTINUCLEAR ANTIBODIES DIRECT Negative (Negative)
[2021-10-05 09:08] LABS: DHEA Sulfate 77.5 ug/dL (84.8-378.0)
[2021-10-05 10:16] LABS: Androstenedione 123 ng/dL (41-262); Zinc, Plasma or Serum 77 ug/dL (44-115)
== END ==
PROVIDERS: PCP Family Medicine; Referring Provider Dermatology; Visit Provider Dermatology
DX: L64.8 Other androgenic alopecia (principal); L70.0 Acne vulgaris; L90.5 Scar conditions and fibrosis of skin; L70.5 Acne excoriee; L65.0 Telogen effluvium
CPT/HCPCS: 82157; 82306; 82607; 82627; 82652; 82728; 82746; 83540; 83550; 84270; 84436; 84439; 84443; 84479; 84630; 86038; 82626

== ENCOUNTER 2021-12-28 13:35 | Outpatient (CLI) | payer OTHER, SELFPAY ==
[2021-12-28 14:38] LABS: AST(SGOT) 17 U/L (15-37); Alanine Aminotransfer ALT/SGPT 17 U/L (13-56); Cholesterol 173 mg/dL (200); High Density Lipoprotein 45 mg/dL; Triglycerides 89 mg/dL; Very Low Density Lipoprotein 18 mg/dL (5-40)
[2021-12-28 14:40] LABS: hCG Titer Quant., Serum < 1 mIU/mL (1-3)
== END 2021-12-28 23:59 | disposition home or self-care (01) ==
LOC: LAB 13:36
PROVIDERS: PCP Family Medicine; Referring Provider Dermatology; Visit Provider Dermatology
DX: L70.0 Acne vulgaris (principal); L64.8 Other androgenic alopecia; L65.0 Telogen effluvium; E61.1 Iron deficiency; L21.8 Other seborrheic dermatitis; L90.5 Scar conditions and fibrosis of skin; L70.5 Acne excoriee
CPT/HCPCS: 36415; 80061; 84450; 84460; 84702

== ENCOUNTER 2022-01-18 14:52 | Outpatient (CLI) | payer OTHER, SELFPAY ==
[2022-01-18 16:39] LABS: Ferritin 37 ng/mL (8-252); Iron 79 ug/dL (50-170); Iron Binding Capacity,Total 323 ug/dL (250-450)
== END 2022-01-18 23:59 | disposition home or self-care (01) ==
LOC: LAB 14:53
PROVIDERS: PCP Family Medicine; Visit Provider Dermatology
DX: E61.1 Iron deficiency (principal)
CPT/HCPCS: 36415; 82728; 83540; 83550

== ENCOUNTER 2022-02-04 13:20 | Outpatient (CLI) | payer OTHER, SELFPAY ==
[2022-02-04 14:10] LABS: Internal QC Validated? YES +Cl - CLEAR BKGD; Pregnancy, Urine Negative Negative
== END 2022-02-04 23:59 | disposition home or self-care (01) ==
LOC: LAB 13:20
PROVIDERS: PCP Family Medicine; Referring Provider Dermatology; Visit Provider Dermatology
DX: Z79.899 Other long term (current) drug therapy (principal)
CPT/HCPCS: 81025

== ENCOUNTER → 2022-02-27 | Outpatient (CLI) | payer OTHER, SELFPAY ==
[2022-02-27 15:02] LABS: Internal QC Validated? YES +Cl - CLEAR BKGD; Pregnancy, Urine Negative Negative
== END | disposition home or self-care (01) ==
LOC: LAB 13:56
PROVIDERS: PCP Family Medicine; Visit Provider Dermatology
DX: L70.0 Acne vulgaris (principal); L64.8 Other androgenic alopecia; L65.0 Telogen effluvium; E61.1 Iron deficiency; L21.8 Other seborrheic dermatitis; L90.5 Scar conditions and fibrosis of skin; L70.5 Acne excoriee
CPT/HCPCS: 81025

== ENCOUNTER → 2022-04-05 | Outpatient (CLI) | payer OTHER, SELFPAY ==
[2022-04-05 17:26] LABS: Alanine Aminotransfer ALT/SGPT 22 U/L (13-56); Triglycerides 109 mg/dL
[2022-04-05 17:35] LABS: Internal QC Validated? YES +Cl - CLEAR BKGD; Pregnancy, Serum, hCG Quali. NEGATIVE Negative
== END | disposition home or self-care (01) ==
LOC: LAB 15:08
PROVIDERS: PCP Family Medicine; Visit Provider Dermatology
DX: L70.0 Acne vulgaris (principal); L90.5 Scar conditions and fibrosis of skin; L70.5 Acne excoriee; L23.3 Allergic contact dermatitis due to drugs in contact with skin; Z79.899 Other long term (current) drug therapy
CPT/HCPCS: 36415; 84460; 84478; 84703

== ENCOUNTER → 2022-05-06 | Outpatient (CLI) | payer OTHER, SELFPAY ==
[2022-05-06 17:57] LABS: Internal QC Validated? YES +Cl - CLEAR BKGD; Pregnancy, Urine Negative Negative
== END | disposition home or self-care (01) ==
PROVIDERS: PCP Family Medicine; Visit Provider Dermatology
DX: L70.0 Acne vulgaris (principal); L90.5 Scar conditions and fibrosis of skin; L70.5 Acne excoriee; Z79.899 Other long term (current) drug therapy; L23.3 Allergic contact dermatitis due to drugs in contact with skin
CPT/HCPCS: 81025

== ENCOUNTER → 2022-06-08 | Outpatient (CLI) | payer OTHER, SELFPAY ==
[2022-06-08 07:58] LABS: Internal QC Validated? YES +Cl - CLEAR BKGD; Pregnancy, Urine Negative Negative
== END | disposition home or self-care (01) ==
LOC: LAB 07:14
PROVIDERS: PCP Family Medicine; Visit Provider Dermatology
DX: L70.0 Acne vulgaris (principal); L90.5 Scar conditions and fibrosis of skin; L70.5 Acne excoriee; Z79.899 Other long term (current) drug therapy; L23.3 Allergic contact dermatitis due to drugs in contact with skin
CPT/HCPCS: 81025

== ENCOUNTER → 2022-06-25 | Outpatient (CLI) | payer OTHER, SELFPAY ==
[2022-06-25 12:44] LABS: Vitamin D,25 Hydroxy 36.2 ng/mL
== END | disposition home or self-care (01) ==
LOC: MFPLAB 10:51
PROVIDERS: PCP Family Medicine; Visit Provider Family Medicine
DX: E55.9 Vitamin D deficiency, unspecified (principal)
CPT/HCPCS: 36415; 82306

== ENCOUNTER → 2022-07-11 | Outpatient (CLI) | payer OTHER, SELFPAY ==
[2022-07-11 11:12] LABS: Internal QC Validated? YES +Cl - CLEAR BKGD; Pregnancy, Urine Negative Negative
== END | disposition home or self-care (01) ==
LOC: LAB 09:56
PROVIDERS: PCP Family Medicine; Referring Provider Dermatology; Visit Provider Dermatology
DX: L70.0 Acne vulgaris (principal); Z79.899 Other long term (current) drug therapy; L90.5 Scar conditions and fibrosis of skin; L70.5 Acne excoriee; L23.3 Allergic contact dermatitis due to drugs in contact with skin
CPT/HCPCS: 81025

== ENCOUNTER → 2022-08-14 | Outpatient (CLI) | payer OTHER, SELFPAY ==
[2022-08-14 09:50] LABS: Internal QC Validated? YES +Cl - CLEAR BKGD; Pregnancy, Urine Negative Negative
== END | disposition home or self-care (01) ==
LOC: LAB 09:16
PROVIDERS: PCP Family Medicine; Visit Provider Dermatology
DX: L70.0 Acne vulgaris (principal); L90.5 Scar conditions and fibrosis of skin; L70.5 Acne excoriee; L23.3 Allergic contact dermatitis due to drugs in contact with skin; L24.9 Irritant contact dermatitis, unspecified cause; Z79.899 Other long term (current) drug therapy
CPT/HCPCS: 81025

== ENCOUNTER 2022-09-05 09:04 | Outpatient (CLI) | payer OTHER, SELFPAY ==
[2022-09-05 09:30] LABS: Absolute Lymphocyte Count 1.93 X10^3/uL (0.83-4.51); Basophil# 0.02 X10^3/uL; Basophil% 0.3 % (0-1); Eosinophil# 0.02 X10^3/uL; Eosinophils% 0.3 % (0-5); Hematocrit 41.8 % (37-47); Hemoglobin 13.4 g/dL (12.0-15.0); Lymphocyte # 1.93 X10^3/ul (0.83-4.51); Lymphocyte % 30.5 % (19-41); Mean Corp Hgb Conc 32.1 g/dL (32-36); Mean Corpuscular Volume 87.3 fL (81-99); Mean Platelet Vol. 10.3 fl (6.2-12.0); Monocyte# 0.39 X10^3/uL; Monocyte% 6.2 % (0-10); NRBC Flagged by Analyzer 0 % (0-5); Neutrophil # 3.95 X10^3/uL (2.7-7.7); Neutrophil % 62.5 % (47-70); Platelet Count 332 K/mm3 (150-450); RBC Distribution Width CV 13.1 % (11.6-14.6); RBC Distribution Width SD 41.7 fl (35.1-43.9); Red Blood Count 4.79 M/mm3 (4.2-5.4); White Blood Count 6.3 K/mm3 (4.4-11.0)
[2022-09-05 10:02] LABS: Vitamin B12 1046 pg/mL (211-911); Vitamin D,25 Hydroxy 51.4 ng/mL
[2022-09-05 11:10] LABS: ALB/GLOB Ratio 1.1 RATIO (0.9-2.4); AST(SGOT) 12 U/L (15-37); Alanine Aminotransfer ALT/SGPT 16 U/L (13-56); Albumin, Serum 4.2 g/dL (3.2-5.0); Alkaline Phosphatase 84 U/L (45-117); Anion Gap 9 (5-15); BUN 12 mg/dL (7-18); BUN/Creat Ratio 17.6 RATIO (10-20); Calcium,Total 9.6 mg/dL (8.5-10.1); Chloride 108 mmol/L (98-107); Creatinine, Serum 0.68 mg/dL (0.55-1.02); EST Glomerular Filtration Rate 108 mL/min (>60); Est Glom Filt Rate - Afr Amer 130 mL/min (>60); Globulin 3.7 g/dL (2.2-4.2); Glucose 90 mg/dL (74-106); Protein, Total 7.9 g/dL (6.4-8.2); Sodium Level 143 mmol/L (136-145); T4 Free Direct 0.86 ng/dL (0.76-1.46); Thyroid Stim Hormone (TSH) 3.03 uIU/mL (0.358-3.74)
== END 2022-09-05 23:59 | disposition home or self-care (01) ==
PROVIDERS: PCP Family Medicine; Visit Provider Family Medicine
DX: R53.83 Other fatigue (principal); E04.1 Nontoxic single thyroid nodule; E55.9 Vitamin D deficiency, unspecified
CPT/HCPCS: 36415; 80053; 82306; 82607; 84439; 84443; 85025

== ENCOUNTER 2022-09-21 09:45 | Outpatient (CLI) | payer OTHER, SELFPAY ==
[2022-09-21 09:59] LABS: Internal QC Validated? YES +Cl - CLEAR BKGD; Pregnancy, Urine Negative Negative
== END 2022-09-21 23:59 | disposition home or self-care (01) ==
LOC: LAB.FUTURE 09:45
PROVIDERS: PCP Family Medicine; Referring Provider Dermatology; Visit Provider Dermatology
DX: L70.0 Acne vulgaris (principal); Z79.899 Other long term (current) drug therapy; L90.5 Scar conditions and fibrosis of skin; L70.5 Acne excoriee; L23.3 Allergic contact dermatitis due to drugs in contact with skin; L24.9 Irritant contact dermatitis, unspecified cause
CPT/HCPCS: 81025

== ENCOUNTER → 2022-10-23 | Outpatient (CLI) | payer OTHER, SELFPAY ==
[2022-10-23 09:24] LABS: Internal QC Validated? YES +Cl - CLEAR BKGD; Pregnancy, Urine Negative Negative
== END | disposition home or self-care (01) ==
LOC: LAB 09:00
PROVIDERS: PCP Family Medicine; Visit Provider Dermatology
DX: Z79.899 Other long term (current) drug therapy (principal); L70.0 Acne vulgaris; L90.5 Scar conditions and fibrosis of skin; L70.5 Acne excoriee; L23.3 Allergic contact dermatitis due to drugs in contact with skin; L24.9 Irritant contact dermatitis, unspecified cause
CPT/HCPCS: 81025

== ENCOUNTER → 2022-11-28 | Outpatient (CLI) | payer OTHER, SELFPAY ==
--- NOTE | 2022-11-28 08:24 | US_ITS ---
STUDY: THYROID ULTRASOUND REASON FOR EXAM: Female, 32 years old. NODULE -- F/U CYST TECHNIQUE: Ultrasound evaluation of the thyroid was performed with real-time and static villa-scale imaging. COMPARISON: Comparison is made with prior study dated 05/21/2021. FINDINGS: RIGHT LOBE: The right lobe of the thyroid gland is enlarged and measures 5.2 cm x 1.7 cm x 1.2 cm. There is a homogeneous echotexture. There are no demonstrated solid, cystic or complex lesions. LEFT LOBE: The left lobe of the thyroid gland measures 4.4 cm x 1.5 cm x 1.2 cm. There is a homogeneous echotexture. Inferior to the left lobe of the thyroid, there is a 6 mm x 6 mm x 4 mm cyst. It previously measured 1.8 cm x 1.1 cm x 1.1 cm. ISTHMUS: The isthmus measures 3 mm. The regional lymph nodes are normal. US/Thyroid IMPRESSION: Status post aspiration of a cyst inferior to the left lobe of the thyroid. It presently measures 6 mm x 6 mm x 4 mm. Electronically Signed: Moisés Arreola MD at 13:55 EST ,
== END | disposition home or self-care (01) ==
LOC: US 08:22
PROVIDERS: PCP Family Medicine; Referring Provider Family Medicine; Visit Provider Family Medicine
DX: E04.1 Nontoxic single thyroid nodule (principal)
CPT/HCPCS: 76536

== ENCOUNTER → 2022-12-04 | Outpatient (CLI) | payer OTHER, SELFPAY ==
[2022-12-04 18:44] LABS: Internal QC Validated? YES +Cl - CLEAR BKGD
[2022-12-04 18:45] LABS: Pregnancy, Urine Negative Negative
== END | disposition home or self-care (01) ==
LOC: LAB 17:37
PROVIDERS: PCP Family Medicine; Visit Provider Dermatology
DX: L70.0 Acne vulgaris (principal); L90.5 Scar conditions and fibrosis of skin; L70.5 Acne excoriee; Z79.899 Other long term (current) drug therapy
CPT/HCPCS: 81025

== ENCOUNTER → 2023-01-06 | Outpatient (CLI) | payer OTHER, SELFPAY ==
[2023-01-06 09:35] LABS: Internal QC Validated? YES +Cl - CLEAR BKGD; Pregnancy, Urine Negative Negative
== END | disposition home or self-care (01) ==
PROVIDERS: PCP Family Medicine; Visit Provider Dermatology
DX: Z79.899 Other long term (current) drug therapy (principal)
CPT/HCPCS: 36415; 81025

== ENCOUNTER → 2023-07-11 | Outpatient (CLI) | payer OTHER, SELFPAY | END | disposition home or self-care (01) | LOC: MFPLAB 16:40 | PROVIDERS: PCP Family Medicine; Visit Provider Family Medicine | DX: R73.09 Other abnormal glucose (principal); E55.9 Vitamin D deficiency, unspecified | CPT/HCPCS: 36415; 82306; 83036 ==

== ENCOUNTER → 2024-07-20 | Outpatient (CLI) | payer OTHER, SELFPAY ==
[2024-07-20 18:15] LABS: ALB/GLOB Ratio 1.2 RATIO (0.9-2.4); AST(SGOT) 15 U/L (15-37); Alanine Aminotransfer ALT/SGPT 17 U/L (13-56); Albumin, Serum 4.2 g/dL (3.2-5.0); Alkaline Phosphatase 61 U/L (45-117); Anion Gap 6 (5-15); BUN 16 mg/dL (7-18); BUN/Creat Ratio 21.3 RATIO (10-20); Calcium,Total 9.6 mg/dL (8.5-10.1); Chloride 108 mmol/L (98-107); Creatinine, Serum 0.75 mg/dL (0.55-1.02); EST Glomerular Filtration Rate 95 mL/min (>60); Est Glom Filt Rate - Afr Amer 115 mL/min (>60); Globulin 3.4 g/dL (2.2-4.2); Glucose 94 mg/dL (74-106); Protein, Total 7.6 g/dL (6.4-8.2); Sodium Level 138 mmol/L (136-145); T4 Free Direct 0.83 ng/dL (0.76-1.46)
[2024-07-20 23:08] LABS: Vitamin D,25 Hydroxy 35.2 ng/mL
== END | disposition home or self-care (01) ==
LOC: MFPLAB 15:09
PROVIDERS: PCP Family Medicine; Visit Provider Family Medicine
DX: E55.9 Vitamin D deficiency, unspecified (principal); R03.0 Elevated blood-pressure reading, without diagnosis of hypertension; E04.1 Nontoxic single thyroid nodule
CPT/HCPCS: 36415; 80053; 82306; 83735; 84439; 84443

== ENCOUNTER → 2024-07-28 | Outpatient (CLI) | payer OTHER, SELFPAY ==
--- NOTE | 2024-07-28 18:15 | US_ITS ---
INDICATION: nodule EXAMINATION: Ultrasound US Thyroid (eg thyroid, parathyroid, parotid) TECHNIQUE: Pillai scale and color doppler imaging was performed of the thyroid gland. COMPARISON: November 28, 2022 FINDINGS: RIGHT THYROID LOBE: 5.1 x 1.5 x 1.1 cm. Homogeneous echotexture with normal vascularity. [No thyroid nodules are present. LEFT THYROID LOBE: 4.5 x 1.3 x 0.9 cm. Homogeneous echotexture with normal vascularity. [ There is a 1.9 x 1.1 x 0.9 cm cystic structure at or adjacent to the lower tip. Possible adjacent 2.1 x 0.7 x 0.3 cm elongated node. ISTHMUS: 2 mm. No thyroid nodules are present. US/Thyroid IMPRESSION: There is a cystic structure at or adjacent to the lower tip, larger than on previous study. Electronically Signed: Favio Ortiz DO at 20:51 EDT ,
== END | disposition home or self-care (01) ==
LOC: US 13:23
PROVIDERS: PCP Family Medicine; Referring Provider Family Medicine; Visit Provider Family Medicine
DX: E04.1 Nontoxic single thyroid nodule (principal)
CPT/HCPCS: 76536

== ENCOUNTER → 2024-08-03 | Outpatient (CLI) | payer OTHER, SELFPAY ==
--- NOTE | 2024-08-03 12:40 | ECHOD_ITS ---
Reason For Study: Murmur Procedure This was a 2D Doppler, Color Flow transthoracic echocardiogram. Exam performed in department. Left Ventricle Normal LV size. The estimated ejection fraction is 60 %. No evidence for diastolic dysfunction. No regional wall motion abnormalities noted. Right Ventricle Normal RV size. Normal systolic function. Atria The left and right atria are normal. No doppler evidence for ASD. Mitral Valve There is no mitral valve stenosis. No mitral valve insufficiency. Tricuspid Valve There is no tricuspid stenosis. Trivial tricuspid valve insufficiency. Unable to estimate RV systolic pressure due to insufficient tricuspid regurgitant envelope. Aortic Valve Trisinus/trileaflet aortic valve. There is no aortic stenosis. No aortic valve insufficiency. Pulmonic Valve There is no pulmonic valvular stenosis. No pulmonic valve insufficiency. Great Vessels Normal aortic root. Pericardium/Pleural No pericardial effusion. MMode/2D Measurements & Calculations LVIDd: 4.3 cm IVSd: 0.77 cm Ao root diam: 2.7 cm LVIDs: 3.0 cm LVPWd: 0.84 cm RVDd: 3.2 cm FS: 29.3 % LAV(MOD-bp): 23.4 ml LVAd ap4: 28.1 cm2 SV(MOD-sp4): 46.9 ml LAV(MOD-bp) Indexed: 13.2 ml/m2 LVLd ap4: 8.0 cm LAV(MOD-sp2): 28.9 ml EDV(MOD-sp4): 80.9 ml LAV(MOD-sp4): 18.6 ml EDV(sp4-el): 83.6 ml LVAs ap4: 16.4 cm2 LVLs ap4: 6.6 cm ESV(MOD-sp4): 34.0 ml ESV(sp4-el): 34.6 ml EF(MOD-sp4): 57.9 % EF(sp4-el): 58.7 % SV(sp4-el): 49.0 ml LA A4 area: 10.0 cm2 LA dimension(2D): 2.5 cm RA A4 area: 8.6 cm2 TAPSE: 2.4 cm Time Measurements MV dec time: 0.22 sec Doppler Measurements & Calculations MV E max tavares: 93.5 cm/sec Lat Peak E' Tavares: 19.0 cm/sec Med Peak E' Tavares: 14.6 cm/sec MV A max tavares: 59.7 cm/sec E/E' lat: 4.9 E/E' med: 6.4 MV E/A: 1.6 Ao V2 max: 138.9 cm/sec LV V1 max: 116.3 cm/sec MV dec slope: 421.4 cm/sec2 Ao max P.7 mmHg LV V1 max P.4 mmHg Ao V2 mean: 107.4 cm/sec Ao mean P.0 mmHg Ao V2 VTI: 27.0 cm PA V2 max: 109.5 cm/sec TR max tavares: 238.2 cm/sec TR max P.7 mmHg ECHO/Echo Complete Interpretation Summary The estimated ejection fraction is 60 %. No evidence for diastolic dysfunction. Ordering Physician: George Jameson Referring Physician: George Jameson Performed By: Anastasiya Boo RDCS, RVT
== END | disposition home or self-care (01) ==
LOC: CVS 12:39
PROVIDERS: PCP Family Medicine; Referring Provider Family Medicine; Visit Provider Family Medicine
DX: R01.1 Cardiac murmur, unspecified (principal)
CPT/HCPCS: 93306; J0153

== ENCOUNTER 2025-07-21 09:16 | Outpatient (CLI) | payer OTHER, SELFPAY ==
[2025-07-21 09:26] LABS: Mucous, Urine 0 SEEN /hpf (<or=2+); Squamous Epithelial Cells - UA 0 SEEN /hpf (5-10)
[2025-07-21 12:57] LABS: Vitamin D,25 Hydroxy 28.2 ng/mL (30-100)
[2025-07-21 13:16] LABS: Color, Urine Yellow (Yellow); Glucose, Dipstick Normal (Normal); Ketone-Dipstick Negative (Negative); Leukocyte Esterase-Dipstick 25 /ul (Negative); Nitrite-Dipstick Negative (Negative); Occult Blood-Urine 50 /ul (Negative); Protein-Dipstick 15 mg/dl (Negative); Specific Gravity, Urine 1.010 (1.002-1.030); Urine Bilirubin Dipstick Negative (Negative)
[2025-07-21 13:35] LABS: Red Blood Cells-Urine 0-5 SEEN /hpf (0-5)
== END 2025-07-21 23:59 | disposition home or self-care (01) ==
LOC: MTLAB 09:17
PROVIDERS: PCP Family Medicine; Referring Provider Family Medicine; Visit Provider Family Medicine
DX: E55.9 Vitamin D deficiency, unspecified (principal)
CPT/HCPCS: 36415; 81001; 82306